=== PATIENT | male | born 2000 | race Hispanic/Latino ===

== ENCOUNTER 2022-06-14 22:09 | Emergency (ER) | payer SELFPAY ==
[~2022-06-14] VITALS: Ht 180.3 cm; Wt 95.3 kg
[2022-06-14] MEDS ORDERED: AMOXICILLIN/CLAVULANATE K 500 MG TAB PO STA (22:42)
[2022-06-14] MEDS ORDERED: TETANUS/DIPHTHERIA TOX ADULT 0.5 ML SYR ONE (22:43)
[2022-06-14] MEDS ORDERED: TETANUS/DIPHTHERIA TOX ADULT 0.5 ML SYR IM ONE (23:00)
[2022-06-14] MEDS ORDERED: IBUPROFEN 600 MG TAB ONE (23:01)
[2022-06-14] MEDS ORDERED: IBUPROFEN 600 MG TAB PO STA (23:04)
[2022-06-14] MEDS ORDERED: AUGMENTIN 500-1 EACH PO (23:14)
[2022-06-14] MEDS ORDERED: BACITRACIN ZINC 0.9GM TP ONE (23:20)
== END 2022-06-14 23:27 | disposition home or self-care (01) ==
LOC: ER 22:23
DX: S61.451A Open bite of right hand, initial encounter (principal); W54.0XXA Bitten by dog, initial encounter; Y92.89 Other specified places as the place of occurrence of the external cause
CPT/HCPCS: 90471; 90714; 99283